=== PATIENT | female | born 2000 | race Caucasian/White ===

== ENCOUNTER 2020-09-13 18:52 | Emergency (ER) | payer MEDICAID ==
[~2020-09-13] VITALS: Ht 152.4 cm; Wt 59.1 kg
[2020-09-13] MEDS ORDERED: IBUPROFEN 600 MG TABLET PO ONE (20:15)
[2020-09-13 21:29] VITALS: BP 118/61
== END 2020-09-13 22:13 | disposition home or self-care (01) ==
LOC: EMS 18:52
DX: S00.83XA Contusion of other part of head, initial encounter (principal); V49.49XA Driver injured in collision with other motor vehicles in traffic accident, initial encounter; Y93.89 Activity, other specified; Y92.89 Other specified places as the place of occurrence of the external cause; Y99.8 Other external cause status
CPT/HCPCS: 70450; 70486; 99285